=== PATIENT | male | born 1975 | race Caucasian/White ===

== ENCOUNTER 2018-03-01 07:08 | Emergency (ER) | payer BC ==
[2018-03-01] MEDS ORDERED: NS 0.9% 1000 ML* 1,000 ML IV ONE (07:23)
[2018-03-01 08:06] LABS: ABS Basophils 0 10^3/ul (0-0.2); ABS Eosinophils 0.1 10^3/ul (0-0.6); ABS Lymphocytes 1.1 10^3/ul (1.0-4.8); ABS Monocytes 0.7 10^3/ul (0-0.8); ABS Neutrophils 3.6 10^3/ul (1.5-7.7); ABS Nucleated RBC 0 10^3/ul; Eosinophil % 2.2 % (0-6); Hematocrit 38 % (42-52); Hemoglobin 13.1 g/dl (14.0-18.0); Lymphocyte % 20.4 % (25-47); Mean Corpuscular HGB Conc 34 g/dl (31-36); Mean Corpuscular Hemoglobin 28 pg (27-31); Mean Corpuscular Volume 82 fL (80-94); Mean Platelet Volume 8.1 um3 (7.4-10.4); Nucleated Red Blood Cells % 0.1; Platelet Count 270 10^3/ul (150-450); Red Blood Count 4.65 10^6/ul (4.0-5.4); Red Cell Distribution Width 13 % (10.5-15); White Blood Count 5.6 10^3/ul (3.5-10.8)
[2018-03-01 08:14] LABS: EGFR Non-African American 73.1 (>60)
--- NOTE | 2018-03-01 08:50 | RAD ---
INDICATION: Cough. COMPARISON: There are no prior studies available for comparison. TECHNIQUE: Dual-energy PA and lateral views of the chest were obtained. FINDINGS: The heart is within normal limits in size. Mediastinal and hilar contours appear within normal limits. The lungs are hyperinflated and clear. No pleural effusion is seen. IMPRESSION: HYPERINFLATION, NO EVIDENCE FOR ACUTE FINDING.
[2018-03-01 08:51] VITALS: BP 118/79
--- NOTE | 2018-03-02 11:50 | ED ---
Alejandro Regalado Angela, scribed for Bi Aguiar MD on 03/01/18 at 0824 . Respiratory - HPI Summary HPI Summary: This pt is a 42 y/o male presenting to [facility] c/o nasal congestion and nonproductive cough x5 weeks. Pt additionally notes sore throat, headache. He states he went to Urgent Care and was told he had a sinus infection. Pt was given Amoxicillin and took it for 10 days with no relief. His last dose of Amoxicillin was 3 days ago. Denies fever, chest pain, SOB. - History of Current Complaint Chief Complaint: EDUpperRespComplaint Stated Complaint: SICKNESS-5 WEEKS Time Seen by Provider: 03/01/18 07:23 Hx Obtained From: Patient Onset/Duration: Lasting Weeks, Still Present Timing: Constant Current Severity: Moderate Pain Intensity: 4 - headache Character: Cough (Nonproductive) Sputum Amount: None Aggravating Factor(s): Nothing Alleviating Factor(s): Nothing Associated Signs and Symptoms: URI - congestion, headache, sore throat - Allergy/Home Medications Allergies/Adverse Reactions: Allergies Allergy/AdvReac Type Severity Reaction Status Date / Time No Known Allergies Allergy Verified 03/01/18 07:16 Home Medications: Home Medications Escitalopram (NF) [Lexapro 10 mg (NF)] 10 mg PO DAILY 03/01/18 [History Confirmed 03/01/18] PMH/Surg Hx/FS Hx/Imm Hx Endocrine/Hematology History: Denies: Hx Diabetes Cardiovascular History: Denies: Hx Hypertension Infectious Disease History: No Infectious Disease History: Denies: Traveled Outside the US in Last 30 Days - Family History Known Family History: Negative: Cardiac Disease, Hypertension, Diabetes - Social History Alcohol Use: None Substance Use Type: Reports: None Smoking Status (MU): Unknown if Ever Smoked Review of Systems Negative: Fever ENT: Other - congestion Positive: Sore Throat Negative: Chest Pain Positive: Cough. Negative: Shortness Of Breath Gastrointestinal: Negative Genitourinary: Negative Positive: Headache All Other Systems Reviewed And Are Negative: Yes Physical Exam - Summary Physical Exam Summary: VITAL SIGNS: Reviewed. GENERAL: Patient is a well-developed and nourished male who is lying comfortable in the stretcher. Patient is not in any acute respiratory distress. HEAD AND FACE: No signs of trauma. No ecchymosis, hematomas or skull depressions. No sinus tenderness. Positive runny nose. EYES: PERRLA, EOMI x 2, No injected conjunctiva, no nystagmus. EARS: Hearing grossly intact. Ear canals and tympanic membranes are within normal limits. MOUTH: Oropharynx within normal limits. NECK: Supple, trachea is midline, no adenopathy, no JVD, no carotid bruit, no c- spine tenderness, neck with full ROM. CHEST: Symmetric, no tenderness at palpation LUNGS: Clear to auscultation bilaterally. No wheezing or crackles. CVS: Regular rate and rhythm, S1 and S2 present, no murmurs or gallops appreciated. ABDOMEN: Soft, non-tender. No signs of distention. No rebound no guarding, and no masses palpated. Bowel sounds are normal. EXTREMITIES: FROM in all major joints, no edema, no cyanosis or clubbing. NEURO: Alert and oriented x 3. No acute neurological deficits. Speech is normal and follows commands. SKIN: Dry and warm Triage Information Reviewed: Yes Vital Signs On Initial Exam: Initial Vitals Temp Pulse Resp BP Pulse Ox 97.7 F 86 18 131/85 98 03/01/18 07:12 03/01/18 07:12 03/01/18 07:12 03/01/18 07:12 03/01/18 07:12 Vital Signs Reviewed: Yes Diagnostics - Vital Signs Vital Signs Temp Pulse Resp BP Pulse Ox 03/01/18 08:00 92 119/81 98 03/01/18 07:50 131/85 03/01/18 07:49 99 98 03/01/18 07:12 97.7 F 86 18 131/85 98 - Laboratory Lab Results: Lab Results 03/01/18 03/01/18 03/01/18 Range/Units 07:44 07:44 07:44 WBC 5.6 (3.5-10.8) 10^3/ul RBC 4.65 (4.0-5.4) 10^6/ul Hgb 13.1 L (14.0-18.0) g/dl Hct 38 L (42-52) % MCV 82 (80-94) fL MCH 28 (27-31) pg MCHC 34 (31-36) g/dl RDW 13 (10.5-15) % Plt Count 270 (150-450) 10^3/ul MPV 8.1 (7.4-10.4) um3 Neut % (Auto) 64.9 (38-83) % Lymph % (Auto) 20.4 L (25-47) % Coal % (Auto) 12.0 H (0-7) % Eos % (Auto) 2.2 (0-6) % Baso % (Auto) 0.5 (0-2) % Absolute Neuts (auto) 3.6 (1.5-7.7) 10^3/ul Absolute Lymphs (auto) 1.1 (1.0-4.8) 10^3/ul Absolute Monos (auto) 0.7 (0-0.8) 10^3/ul Absolute Eos (auto) 0.1 (0-0.6) 10^3/ul Absolute Basos (auto) 0 (0-0.2) 10^3/ul Absolute Nucleated RBC 0 10^3/ul Nucleated RBC % 0.1 Sodium 138 L (139-145) mmol/L Potassium 4.1 (3.5-5.0) mmol/L Chloride 102 (101-111) mmol/L Carbon Dioxide 30 (22-32) mmol/L Anion Gap 6 (2-11) mmol/L BUN 14 (6-24) mg/dL Creatinine 1.10 (0.67-1.17) mg/dL Est GFR ( Amer) 94.0 (>60) Est GFR (Non-Af Amer) 73.1 (>60) BUN/Creatinine Ratio 12.7 (8-20) Glucose 89 (70-100) mg/dL Lactic Acid 1.4 (0.5-2.0) mmol/L Calcium 9.6 (8.6-10.3) mg/dL Total Bilirubin 0.60 (0.2-1.0) mg/dL AST 15 (13-39) U/L ALT 17 (7-52) U/L Alkaline Phosphatase 71 (34-104) U/L C-Reactive Protein 13.69 H (< 5.00) mg/L Total Protein 7.2 (6.4-8.9) g/dL Albumin 4.3 (3.2-5.2) g/dL Globulin 2.9 (2-4) g/dL Albumin/Globulin Ratio 1.5 (1-3) Result Diagrams: 03/01/18 07:44 03/01/18 07:44 Lab Statement: Any lab studies that have been ordered have been reviewed, and results considered in the medical decision making process. - Radiology Chest XR Xray Interpretation: No Acute Changes - IMPRESSION: Hyperinflation. No evidence for acute finding. Dr. Aguiar has reviewed this radiology report. Radiology Interpretation Completed By: Radiologist Re-Evaluation - Re-Evaluation First Eval Re-Evaluation Time: 08:38 Comment: I reviewed the labs and XR results with the pt. Pt will be discharged home. Disposition - Course Assessment/Plan: This pt is a 42 y/o male presenting to [facility] c/o nasal congestion and nonproductive cough x5 weeks. Pt additionally notes sore throat, headache. He states he went to Urgent Care and was told he had a sinus infection. Pt was given Amoxicillin and took it for 10 days with no relief. His last dose of Amoxicillin was 3 days ago. Denies fever, chest pain, SOB. Test results without any significant abnormalities except for CRP of 13.69. Influenza A and B are negative. Rapid strep test is negative. Chest XR: Hyperinflation. No evidence for acute finding. In the ED course the pt was given IV fluids. I believe the pt is dealing with an upper respiratory infection. Pt will be given prescriptions for Tessalon Perles and Mucinex. Pt will be discharged to home with follow up from his PCP. I discussed all the findings and test results with the patient. All questions were answered to patient satisfaction. There were no further complaints or concerns. He is instructed to return to the ED for any worsening or new symptoms. Pt is hemodynamically stable, alert and oriented x3. - Diagnoses Provider Diagnoses: Upper respiratory infection, Cough Discharge - Sign-Out/Discharge Documenting (check all that apply): Discharge - discharge to home - Discharge Plan Condition: Stable Disposition: HOME Prescriptions: Benzonatate CAP* [Tessalon 100 MG CAP*] 100 mg PO TID PRN #12 cap PRN Reason: Cough Guaifenesin/Pseudo 600/60(NF) [Mucinex D 600/60 (NF)] 1 tab PO Q12H #10 tab Patient Education Materials: Upper Respiratory Infection (ED), Acute Cough (ED) Forms: *Work Release Referrals: [facility] PHYSICIAN REFERRAL [Outside] No Primary Care Phys,NOPCP [Primary Care Provider] - Additional Instructions: Please follow up with your primary care provider. RETURN TO THE ED FOR ANY NEW OR WORSENING SYMPTOMS. The documentation as recorded by the Alejandro rodriguez Angela accurately reflects the service I personally performed and the decisions made by , Bi Aguiar MD.
== END 2018-03-01 08:50 | disposition home or self-care (01) ==
LOC: ED 07:08
DX: J06.9 Acute upper respiratory infection, unspecified (principal); R05 Cough
CPT/HCPCS: 36415; 71046; 80053; 83605; 85025; 86140; 87502; 87651; 96360; 99283

== ENCOUNTER 2018-08-01 10:18 | Emergency (ER) | payer BC, OTHER ==
--- NOTE | 2018-08-01 10:55 | ED ---
Dizziness - HPI Summary HPI Summary: This pt is a 43 y/o male presenting to [facility] c/o dizziness and headache for the past 1 week. 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 He states the symptoms when he had a brain tumor are similar to today's. He states he also has chronic dizziness but this dizziness feels different. Pt also reports nausea and headache. Headache is described as a shooting pain from the bottom of his skull radiating up to the top of his head. Denies chest pain, SOB, palpitations, fever, chills. PMHx includes migraines, vertigo, brain tumor, depression. Pt takes mark root for his depression. - History Of Current Complaint Chief Complaint: EDDizziness Stated Complaint: DIZZINESS,HEADACHE Time Seen by Provider: 08/01/18 10:45 Hx Obtained From: Patient Onset/Duration: Still Present Timing: Weeks - 1 Severity Initially: Moderate Severity Currently: Moderate Character: Dizzy, Unable To Describe Aggravating Factor(s): Nothing Alleviating Factor(s): Nothing Associated Signs And Symptoms: Positive: Nausea, Other: - headache. Negative: Chest Pain, SOB, Palpitations, Fever, Chills - Allergies/Home Medications Allergies/Adverse Reactions: Allergies Allergy/AdvReac Type Severity Reaction Status Date / Time No Known Allergies Allergy Verified 08/01/18 10:33 Home Medications: Home Medications NK [No Home Medications Reported] 08/01/18 [History Confirmed 08/01/18] PMH/Surg Hx/FS Hx/Imm Hx Endocrine/Hematology History: Denies: Hx Diabetes Cardiovascular History: Denies: Hx Hypertension Neurological History: Reports: Hx Migraine Psychiatric History: Reports: Hx Depression - Cancer History Cancer Type, Location and Year: Brain Tumor - Surgical History Surgery Procedure, Year, and Place: brain tumor removal Infectious Disease History: No Infectious Disease History: Denies: Traveled Outside the [place] in Last 30 Days - Family History Known Family History: Negative: Cardiac Disease, Hypertension, Diabetes - Social History Alcohol Use: None Substance Use Type: Reports: None Smoking Status (MU): Unknown if Ever Smoked Review of Systems Negative: Fever, Chills ENT: Negative Negative: Chest Pain Negative: Shortness Of Breath Positive: Nausea Neurological: Other - POS: dizziness Positive: Headache All Other Systems Reviewed And Are Negative: Yes Physical Exam - Summary Physical Exam Summary: Appearance: The patient is well-nourished in no acute distress and in no acute pain. Skin: The skin is warm and dry and skin color reflects adequate perfusion. HEENT: The head is normocephalic and atraumatic. He has a dysconjugate gaze. Lateral gaze of right eye, which is deformed. No nystagmus. The conjunctivae are clear and without drainage. Nares are patent and without drainage. Mouth reveals moist mucous membranes and the throat is without erythema and exudate. The external ears are intact. The ear canals are patent and without drainage. The tympanic membranes are intact. Neck: the neck is supple with full range of motion and non-tender. There are no carotid bruits. There is no neck vein distension. Respiratory: Chest is non-tender. Lungs are clear to auscultation and breath sounds are symmetrical and equal. Cardiovascular: Heart is regular rate and rhythm. There is no murmur or rub auscultated. There is no peripheral edema and pulses are symmetrical and equal. Abdomen: The abdomen is soft and non-tender. There are normal bowel sounds heard in all four quadrants and there is no organomegaly palpated. Musculoskeletal: There is no back tenderness noted. Extremities are non-tender with full range of motion. There is good capillary refill. There is no peripheral edema or calf tenderness elicited. Neurological: Patient is alert and oriented to person, place and time. The patient has symmetrical motor strength in all four extremities. Cranial nerves are grossly intact. No dysmetria. No nystagmus. Normal finger to nose. Psychiatric: The patient has an appropriate affect and does not exhibit any anxiety or depression. GCS: 15 Triage Information Reviewed: Yes Vital Signs On Initial Exam: Initial Vitals Temp Pulse Resp BP Pulse Ox 97.7 F 63 16 135/72 100 08/01/18 10:30 08/01/18 10:30 08/01/18 10:30 08/01/18 10:30 08/01/18 10:30 Vital Signs Reviewed: Yes Diagnostics - Vital Signs Vital Signs Temp Pulse Resp BP Pulse Ox 08/01/18 10:30 97.7 F 63 16 135/72 100 - Laboratory Result Diagrams: 08/01/18 11:09 08/01/18 11:09 Lab Statement: Any lab studies that have been ordered have been reviewed, and results considered in the medical decision making process. - CT Brain CT CT Interpretation: No Acute Changes - IMPRESSION: No acute intracranial pathology. Postsurgical change to the right posterior fossa. Dr. Rowland has reviewed this report. CT Interpretation Completed By: Radiologist - EKG 11:16 Cardiac Rate: NL - at 68 bpm EKG Rhythm: Sinus Rhythm ST Segment: Normal Ectopy: None EKG Interpretation: No STEMI. Re-Evaluation - Re-Evaluation First Eval Re-Evaluation Time: 12:56 Comment: I reviewed the lab and CT results with the pt. Dizzy Course/Dx - Course Course Of Treatment: Mr. Mcgowan presented complaining of headaches and dizziness. The dizziness he has had for a very long time but seems to be worse in the last week. He has had a history of migraine headaches but he is having some occipital headaches at this time which seem different to him. He denies any gait problems visual problems etc. Labs and CT were normal and I recommended close follow-up. He is new to [facility] and has not been set up here and I referred him to [facility]. - Diagnoses Provider Diagnoses: Dizziness Discharge - Sign-Out/Discharge Documenting (check all that apply): Patient Departure - Discharge - Discharge Plan Condition: Stable Disposition: HOME Patient Education Materials: Dizziness (ED) Referrals: [facility] [Outside] Additional Instructions: Please follow up with your primary care provider in 2-3 days. RETURN TO THE ED FOR ANY WORSENING SYMPTOMS. - Billing Disposition and Condition Condition: STABLE Disposition: Home - Attestation Statements Document Initiated by Scribe: Yes Documenting Scribe: Nesha Allen Provider For Whom Fritz is Documenting (Include Credential): Hemal Rowland MD Scribe Attestation: Nesha Regalado, scribed for Hemal Rowland MD on 08/01/18 at 1600. Scribe Documentation Reviewed: Yes Provider Attestation: The documentation as recorded by the Nesha rodriguez accurately reflects the service I personally performed and the decisions made by me, Hemal Rowland MD
--- NOTE | 2018-08-01 11:18 | RAD ---
HISTORY: dizzy COMPARISONS: None TECHNIQUE: Multiple contiguous axial CT scans were obtained of the head without intravenous contrast. FINDINGS: HEMORRHAGE/INFARCT: There is no hemorrhage or acute infarct. MASSES/SHIFT: There is no mass or shift. EXTRA-AXIAL SPACES: There are no extra-axial fluid collections. SULCI AND VENTRICLES: The sulci and ventricles are normal in size and position for the patient's stated age. CEREBRUM: There are no focal parenchymal abnormalities. BRAINSTEM: There are no focal parenchymal abnormalities. CEREBELLUM: There is encephalomalacia of the right lateral cerebellum. VESSELS: The vessels are grossly normal. PARANASAL SINUSES: The paranasal sinuses are clear. ORBITS: The orbits are unremarkable. BONES AND SOFT TISSUE: There is postsurgical change to the right occipital skull. OTHER: None IMPRESSION: NO ACUTE INTRACRANIAL PATHOLOGY. POSTSURGICAL CHANGE TO THE RIGHT POSTERIOR FOSSA
[2018-08-01 11:19] LABS: ABS Basophils 0 10^3/ul (0-0.2); ABS Eosinophils 0.1 10^3/ul (0-0.6); ABS Lymphocytes 1.6 10^3/ul (1.0-4.8); ABS Monocytes 0.4 10^3/ul (0-0.8); ABS Neutrophils 1.8 10^3/ul (1.5-7.7); ABS Nucleated RBC 0 10^3/ul; Eosinophil % 1.9 % (0-6); Hematocrit 44 % (42-52); Hemoglobin 14.9 g/dl (14.0-18.0); Mean Corpuscular HGB Conc 34 g/dl (31-36); Mean Corpuscular Hemoglobin 28 pg (27-31); Mean Corpuscular Volume 82 fL (80-94); Mean Platelet Volume 8.6 um3 (7.4-10.4); Nucleated Red Blood Cells % 0.2; Platelet Count 223 10^3/ul (150-450); Red Blood Count 5.37 10^6/ul (4.00-5.40); Red Cell Distribution Width 14 % (10.5-15); White Blood Count 3.9 10^3/ul (3.5-10.8)
[2018-08-01 11:59] LABS: EGFR Non-African American 83.1 (>60)
[2018-08-01 13:16] VITALS: BP 127/83
== END 2018-08-01 13:15 | disposition home or self-care (01) ==
LOC: ED 10:18
DX: R42 Dizziness and giddiness (principal); R11.0 Nausea; R51 Headache
CPT/HCPCS: 36415; 70450; 80053; 83605; 83735; 84443; 84484; 85025; 93005; 99282

== ENCOUNTER → 2018-08-17 15:52 | Emergency (ER) | payer OTHER ==
[~2018-08-17 15:52] MED LIST: Ibuprofen TAB* 400 MG PO ONE
--- NOTE | 2018-08-17 17:29 | RAD ---
Indication: Right foot injury after trauma 3 views of the right foot are reviewed. No definite fracture or dislocation is noted. No other bone or joint abnormality is identified. IMPRESSION: No definite fracture of the right foot is noted. If there is persistent clinical concern follow-up imaging is suggested.
--- NOTE | 2018-08-17 17:40 | ED ---
Lower Extremity - HPI Summary HPI Summary: Patient presents with right foot injury prior to arrival. He reports he was helping a friend load logs and one fell on his right foot. He has had pain, swelling and bruising since. Pain radiates from his big toe under his foot into the arch of his foot. He has not been bearing weight but has been using crutches that he had at home. Denies radiating pain into the ankle or higher into his leg. Additionally, he denies numbness, tingling, weakness. He has not had anything for pain prior to arrival and wishes not to have any narcotics during his stay or upon discharge. No previous injury to this foot or ankle he recalls. - History of Current Complaint Chief Complaint: EDExtremityLower Stated Complaint: RT FOOT INJURY Time Seen by Provider: 08/17/18 16:26 Hx Obtained From: Patient, Family/Frame Changer - family Pain Intensity: 8 - Allergies/Home Medications Allergies/Adverse Reactions: Allergies Allergy/AdvReac Type Severity Reaction Status Date / Time No Known Allergies Allergy Verified 08/01/18 10:33 PMH/Surg Hx/FS Hx/Imm Hx Previously Healthy: Yes Endocrine/Hematology History: Denies: Hx Anticoagulant Therapy, Hx Blood Disorders, Hx Diabetes Cardiovascular History: Denies: Hx Hypertension Neurological History: Reports: Hx Migraine Psychiatric History: Reports: Hx Depression - Cancer History Cancer Type, Location and Year: Brain Tumor - Surgical History Surgery Procedure, Year, and Place: brain tumor removal Infectious Disease History: No Infectious Disease History: Denies: Traveled Outside the [place] in Last 30 Days - Family History Known Family History: Negative: Cardiac Disease, Hypertension, Diabetes - Social History Alcohol Use: None Substance Use Type: Reports: None Smoking Status (MU): Former Smoker Physical Exam Vital Signs On Initial Exam: Initial Vitals Temp Pulse Resp BP Pulse Ox 98 F 84 17 141/87 97 08/17/18 16:06 08/17/18 16:06 08/17/18 16:06 08/17/18 16:06 08/17/18 16:06 Diagnostics - Vital Signs Vital Signs Temp Pulse Resp BP Pulse Ox 08/17/18 16:06 98 F 84 17 141/87 97 - Laboratory Lab Statement: Any lab studies that have been ordered have been reviewed, and results considered in the medical decision making process. Discharge - Discharge Plan Referrals: Kt De Jesus MD [Primary Care Provider] -
[2018-08-17 19:25] VITALS: BP 124/84
== END | disposition home or self-care (01) ==
LOC: ED 15:52
DX: S99.921A Unspecified injury of right foot, initial encounter (principal); W19.XXXA Unspecified fall, initial encounter; Y92.9 Unspecified place or not applicable; F32.9 Major depressive disorder, single episode, unspecified; Z87.891 Personal history of nicotine dependence
CPT/HCPCS: 99282; A9270-GY